=== PATIENT | male | born 1940 | race Caucasian/White ===

== ENCOUNTER 2020-10-08 20:46 | Inpatient (IN) ==
[2020-10-08] MEDS ORDERED: 0.9 % Sodium Chloride 1,000 ML IVC ONE (21:09)
[2020-10-08] MEDS ORDERED: 0.9 % Sodium Chloride 2,000 ML ONE (21:09)
[2020-10-08] MEDS ORDERED: 0.9 % Sodium Chloride 1,000 ML IV ONE (21:11)
[2020-10-08 21:25] LABS: Hematocrit 31.9 % (37.5-50.1); INR 1.2; Mean Corpuscular HGB Conc 31.3 g/dL (31.6-35.5); Mean Corpuscular Volume 95.8 fL (83.0-100.0); Mean Platelet Volume 10.1 fL (9.4-12.4); Nucleated Red Blood Cells 0.6 /100 WBC (0); Platelet Count 273 K/mcL (140-400); Prothrombin Time 13.3 Seconds (9.4-12.1); Red Blood Count 3.33 M/mcL (4.19-5.50); Red Cell Distribution Width 18.6 % (11.5-14.5); White Blood Count 12.8 K/mcL (4.3-11.1)
[2020-10-08 21:46] LABS: Albumin 2.8 g/dL (3.5-5.7); Albumin/Globulin Ratio 0.8 (1.1-2.2); Bilirubin,Total 0.3 mg/dL (0.3-1.0); Calcium 7.9 mg/dL (8.6-10.3); Globulin 3.6 g/dL (2.4-3.5); Total Protein 6.4 g/dL (6.4-8.9); Troponin I 0.05 ng/mL (< 0.04)
[2020-10-08] MEDS ORDERED: MetroNIDAZOLE 500 MG/100 ML 500 MG/100 ML BAG IVPB ONE (21:50)
[2020-10-08] MEDS ORDERED: 0.9 % Sodium Chloride 500 ML IV ONE (21:50)
[2020-10-08] MEDS ORDERED: Cefepime HCl 2,000 MG in Water for inj. (sterile) 20 ML IVP ONE (21:50)
[2020-10-08] MEDS ORDERED: Vancomycin 1,250 MG/262.5 ML IV.SOLN IVPB ONE (22:00)
[2020-10-08] MEDS ORDERED: 0.9 % Sodium Chloride 250 ML ONE (22:03)
[2020-10-08] MEDS ORDERED: *HR* Norepinephrine 4 MG/4 ML VIAL IVC ONE (22:03)
[2020-10-08] MEDS: Norepinephrine 4 MG/254 ML IV.SOLN IVC SCH (22:14)
[2020-10-08 22:21] LABS: Lymphocytes # 1.8 K/mcL (0.6-4.6); Monocytes # 0.4 K/mcL (0.0-1.3); Neutrophils # 9.9 K/mcL (1.6-8.9)
[2020-10-08 22:22] LABS: Anisocytosis 1+ (Not Present); Platelet Estimate Normal (Normal); Reactive Lymphocytes Present (Not Present)
[2020-10-08 23:13] LABS: Bacteria,Urine Few per hpf (None-Few); Bilirubin,Urine Negative (Negative); Blood,Urine Small (Negative); Clarity,Urine Turbid (Clear); Color,Urine Yellow (Yellow); Glucose,Urine (UA) Normal (Normal); Ketones,Urine Negative (Negative); Leukocyte Esterase,Urine Negative (Negative); Nitrite,Urine Negative (Negative); PH,Urine 5.5 pH Units (5.0-8.0); Protein,Urine 200 mg/dL (Neg-Trace); RBC,Urine 0-3 per hpf (0-3); Specific Gravity,Urine 1.028 (1.010-1.025); Urobilinogen,Urine Normal (Normal)
[2020-10-08 23:53] LABS: VBG HCO3 14 mEq/L (21-27); VBG PCO2 35 mmHg (41-51); VBG PO2 48 mmHg (25-50)
[2020-10-09 02:37] LABS: Adenovirus Not Detected (Not Detect); Bordetella Pertussis Not Detected (Not Detect); Chlamydophila pneumoniae Not Detected (Not Detect); Coronavirus 229E Not Detected (Not Detect); Coronavirus HKU1 Not Detected (Not Detect); Coronavirus NL63 Not Detected (Not Detect); Coronavirus OC43 Not Detected (Not Detect); Human Metapneumovirus Not Detected (Not Detect); Human Rhinovirus/Enterovirus Not Detected (Not Detect); Influenza A Subtype 2009 H1 Not Detected (Not Detect); Influenza B Not Detected (Not Detect); Mycoplasma pneumoniae Not Detected (Not Detect); Parainfluenza Virus 1 Not Detected (Not Detect); Parainfluenza Virus 2 Not Detected (Not Detect); Parainfluenza Virus 3 Not Detected (Not Detect); Parainfluenza Virus 4 Not Detected (Not Detect); Respiratory Syncytial Virus Not Detected (Not Detect); SARS-CoV-2 Not Detected (Not Detect)
[2020-10-09 04:13] LABS: VBG Ionized Calcium 0.85 mmol/L (1.15-1.35)
[2020-10-09 04:15] LABS: Hematocrit 29.4 % (37.5-50.1); Mean Corpuscular HGB Conc 30.6 g/dL (31.6-35.5); Mean Corpuscular Hemoglobin 29.5 pg (28.0-33.3); Mean Corpuscular Volume 96.4 fL (83.0-100.0); Mean Platelet Volume 10.5 fL (9.4-12.4); Nucleated Red Blood Cells 0.6 /100 WBC (0); Platelet Count 265 K/mcL (140-400); Red Blood Count 3.05 M/mcL (4.19-5.50); Red Cell Distribution Width 18.8 % (11.5-14.5); White Blood Count 14.1 K/mcL (4.3-11.1)
[2020-10-09 04:32] LABS: Albumin 2.7 g/dL (3.5-5.7); Albumin/Globulin Ratio 0.8 (1.1-2.2); Bilirubin,Total 0.3 mg/dL (0.3-1.0); Calcium 7.3 mg/dL (8.6-10.3); Globulin 3.3 g/dL (2.4-3.5); Magnesium 1.7 mg/dL (1.6-2.6); Phosphorous 4.5 mg/dL (2.7-4.5); Potassium 4.9 mEq/L (3.5-5.1)
[2020-10-09] MEDS ORDERED: Calcium Gluconate 1gm/50mL 1 GM/50 ML BAG IVPB ONE ×3 (04:41→17:31)
[2020-10-09] MEDS ORDERED: Naloxone 0.4 MG/ML INJ IVP PRN (04:53)
[2020-10-09] MEDS: Ipratropium/Albuterol Neb 3 ML IH PRN (05:08)
[2020-10-09 05:20] LABS: Basophils # 0.3 K/mcL (0.0-0.2); Monocytes # 0.3 K/mcL (0.0-1.3); Neutrophils # 11.6 K/mcL (1.6-8.9); Platelet Estimate Normal (Normal)
[2020-10-09] MEDS: Norepinephrine 4 MG/254 ML IV.SOLN IVC SCH ×2 (06:35→21:49)
[2020-10-09] MEDS ORDERED: Vancomycin 1 EACH in 0.9 % Sodium Chloride 250 ML IVPB PRN (07:00)
[2020-10-09] MEDS: MetroNIDAZOLE 500 MG/100 ML 500 MG/100 ML BAG IVPB SCH ×3 (07:59→23:21)
[2020-10-09] MEDS ORDERED: Hydrocortisone Sodium Succ 100 MG/2 ML VIAL IVP SCH (08:00)
[2020-10-09] MEDS: Ringers Solution, Lactated 1,000 ML IVC SCH ×3 (08:55→21:48)
[2020-10-09 09:46] LABS: ABG Base Excess -12 mEq/L (-2 to 3); ABG HCO3 13 mEq/L (21-27); ABG Oxygen Saturation 91 % (95-98); ABG PCO2 24 mmHg (35-45); ABG PH 7.33 pH Units (7.32-7.45); ABG PO2 64 mmHg (85-104); ABG TCO2 14 mEq/L (20-26)
[2020-10-09] MEDS: Sodium Bicarbonate 150 MEQ in D5% in Water 1,000 ML IVC SCH ×2 (09:58→21:49)
[2020-10-09] MEDS: Calcium Gluconate 1gm/50mL 1 GM/50 ML BAG IVPB SCH ×2 (10:08→11:16)
[2020-10-09] MEDS: Hydrocortisone Sodium Succ 100 MG/2 ML VIAL IVP SCH ×3 (13:30→23:21)
[2020-10-09] MEDS: *HR* Heparin 5,000 UNIT/ML VIAL SQ SCH ×2 (13:30→17:34)
[2020-10-09 14:48] LABS: Uric Acid 10.2 mg/dL (2.3-7.6)
[2020-10-09 17:24] LABS: VBG Ionized Calcium 0.94 mmol/L (1.15-1.35)
[2020-10-09] MEDS ORDERED: Magnesium Sulfate 1 GM/102 ML PIGGYBACK IVPB ONE (17:31)
[2020-10-09 17:34] LABS: Sodium, Urine 56.6 mEq/L
[2020-10-09] MEDS ORDERED: Calcium Gluconate 1gm/50mL 1 GM/50 ML BAG IVPB PRN (17:56)
[2020-10-09] MEDS: Pantoprazole 40 MG VIAL IVP SCH (22:50)
[2020-10-10] MEDS: *HR* Heparin 5,000 UNIT/ML VIAL SQ SCH ×2 (03:41→11:22)
[2020-10-10 04:03] LABS: VBG Ionized Calcium 0.98 mmol/L (1.15-1.35)
[2020-10-10 04:17] LABS: Hematocrit 25.9 % (37.5-50.1); Hemoglobin 8.4 g/dL (12.9-16.9); Mean Corpuscular HGB Conc 32.4 g/dL (31.6-35.5); Mean Corpuscular Hemoglobin 29.7 pg (28.0-33.3); Mean Corpuscular Volume 91.5 fL (83.0-100.0); Mean Platelet Volume 10.2 fL (9.4-12.4); Nucleated Red Blood Cells 0.4 /100 WBC (0); Platelet Count 244 K/mcL (140-400); Red Blood Count 2.83 M/mcL (4.19-5.50); Red Cell Distribution Width 18.2 % (11.5-14.5); White Blood Count 12.3 K/mcL (4.3-11.1)
[2020-10-10 04:20] LABS: Magnesium 1.9 mg/dL (1.6-2.6); Phosphorous 4.3 mg/dL (2.7-4.5)
[2020-10-10 04:38] LABS: Monocytes # 0.3 K/mcL (0.0-1.3); Neutrophils # 10.8 K/mcL (1.6-8.9); Platelet Estimate Normal (Normal)
[2020-10-10 04:48] LABS: Albumin 2.4 g/dL (3.5-5.7); Albumin/Globulin Ratio 0.8 (1.1-2.2); Bilirubin,Total 0.3 mg/dL (0.3-1.0); Calcium 7.7 mg/dL (8.6-10.3); Globulin 3.2 g/dL (2.4-3.5); Potassium 4.4 mEq/L (3.5-5.1); Total Protein 5.6 g/dL (6.4-8.9)
[2020-10-10] MEDS ORDERED: *HR* Metoprolol 5 MG/5 ML VIAL IVP ONE ×3 (05:26→12:50)
[2020-10-10] MEDS: Hydrocortisone Sodium Succ 100 MG/2 ML VIAL IVP SCH ×2 (05:40→11:22)
[2020-10-10] MEDS: Calcium Gluconate 1gm/50mL 1 GM/50 ML BAG IVPB SCH ×2 (05:41→06:17)
[2020-10-10] MEDS: Pantoprazole 40 MG VIAL IVP SCH (08:01)
[2020-10-10] MEDS: MetroNIDAZOLE 500 MG/100 ML 500 MG/100 ML BAG IVPB SCH ×3 (08:02→23:04)
[2020-10-10] MEDS: Ringers Solution, Lactated 1,000 ML IVC SCH ×2 (09:26→11:23)
[2020-10-10] MEDS: Ipratropium/Albuterol Neb 3 ML IH PRN (10:23)
[2020-10-10] MEDS ORDERED: Vancomycin 1 EACH in 0.9 % Sodium Chloride 250 ML IVPB PRN (11:35)
[2020-10-10] MEDS ORDERED: Ipratropium/Albuterol Neb 3 ML IH PRN (11:35)
[2020-10-10] MEDS ORDERED: Naloxone 0.4 MG/ML INJ IVP PRN (11:35)
[2020-10-10 11:53] LABS: VBG Ionized Calcium 1.06 mmol/L (1.15-1.35)
[2020-10-11 01:54] LABS: Hematocrit 25.2 % (37.5-50.1); Hemoglobin 8.4 g/dL (12.9-16.9); Mean Corpuscular HGB Conc 33.3 g/dL (31.6-35.5); Mean Corpuscular Hemoglobin 30.4 pg (28.0-33.3); Mean Corpuscular Volume 91.3 fL (83.0-100.0); Mean Platelet Volume 10.2 fL (9.4-12.4); Nucleated Red Blood Cells 0.4 /100 WBC (0); Platelet Count 241 K/mcL (140-400); Red Blood Count 2.76 M/mcL (4.19-5.50); Red Cell Distribution Width 18.2 % (11.5-14.5); White Blood Count 13.9 K/mcL (4.3-11.1)
[2020-10-11 02:08] LABS: Albumin 2.5 g/dL (3.5-5.7); Albumin/Globulin Ratio 0.8 (1.1-2.2); Bilirubin,Total 0.3 mg/dL (0.3-1.0); Calcium 7.9 mg/dL (8.6-10.3); Potassium 4.1 mEq/L (3.5-5.1); Total Protein 5.5 g/dL (6.4-8.9)
[2020-10-11 02:25] LABS: Lymphocytes # 1.4 K/mcL (0.6-4.6); Monocytes # 0.3 K/mcL (0.0-1.3); Neutrophils # 11.4 K/mcL (1.6-8.9)
[2020-10-11] MEDS: MetroNIDAZOLE 500 MG/100 ML 500 MG/100 ML BAG IVPB SCH ×2 (07:59→17:35)
[2020-10-11] MEDS: 0.9 % Sodium Chloride 1,000 ML IVC SCH (11:49)
[2020-10-11] MEDS: Cefepime HCl 1,000 MG in Water for inj. (sterile) 10 ML IVP SCH (11:50)
[2020-10-11] MEDS ORDERED: D5% in Water 1,000 ML IVC PRN (15:14)
[2020-10-11] MEDS ORDERED: Dextrose Gel 15 GM/37.5 ML TUBE PO PRN ×2 (15:14)
[2020-10-11] MEDS ORDERED: *HR* Dextrose 50 % in Water (Vial) 50 ML VIAL IVP PRN (15:14)
[2020-10-11] MEDS: Insulin LISPRO 300 UNITS/3 ML VIAL SUBQ SCH ×2 (17:38→20:46)
[2020-10-12] MEDS: 0.9 % Sodium Chloride 1,000 ML IVC SCH (00:13)
[2020-10-12] MEDS: MetroNIDAZOLE 500 MG/100 ML 500 MG/100 ML BAG IVPB SCH ×4 (00:14→23:32)
[2020-10-12 03:10] LABS: Albumin 2.7 g/dL (3.5-5.7); Albumin/Globulin Ratio 0.8 (1.1-2.2); Bilirubin,Total 0.4 mg/dL (0.3-1.0); Globulin 3.4 g/dL (2.4-3.5); Potassium 3.8 mEq/L (3.5-5.1); Total Protein 6.1 g/dL (6.4-8.9)
[2020-10-12 04:22] LABS: Hematocrit 30.1 % (37.5-50.1); Hemoglobin 9.8 g/dL (12.9-16.9); Mean Corpuscular HGB Conc 32.6 g/dL (31.6-35.5); Mean Corpuscular Hemoglobin 30.1 pg (28.0-33.3); Mean Corpuscular Volume 92.3 fL (83.0-100.0); Nucleated Red Blood Cells 0.4 /100 WBC (0); Platelet Count 249 K/mcL (140-400); Red Blood Count 3.26 M/mcL (4.19-5.50); Red Cell Distribution Width 18.6 % (11.5-14.5); White Blood Count 13.6 K/mcL (4.3-11.1)
[2020-10-12 06:06] LABS: Basophils # 0.3 K/mcL (0.0-0.2); Lymphocytes # 2.5 K/mcL (0.6-4.6); Monocytes # 0.3 K/mcL (0.0-1.3); Neutrophils # 9.5 K/mcL (1.6-8.9); Platelet Estimate Normal (Normal)
[2020-10-12] MEDS: Insulin LISPRO 300 UNITS/3 ML VIAL SUBQ SCH ×4 (08:16→20:21)
[2020-10-12] MEDS: Cefepime HCl 1,000 MG in Water for inj. (sterile) 10 ML IVP SCH (12:05)
[2020-10-12] MEDS ORDERED: Vancomycin 500 MG in 0.9 % Sodium Chloride Mini Bag 100 ML IVPB ONE (14:00)
[2020-10-12] MEDS ORDERED: Ipratropium/Albuterol Neb 3 ML IH SCH (14:30)
[2020-10-12] MEDS: *HR* Heparin 5,000 UNIT/ML VIAL SQ SCH (20:25)
[2020-10-13 03:27] LABS: Hematocrit 29.3 % (37.5-50.1); Mean Corpuscular HGB Conc 30.7 g/dL (31.6-35.5); Mean Corpuscular Hemoglobin 28.8 pg (28.0-33.3); Mean Corpuscular Volume 93.6 fL (83.0-100.0); Mean Platelet Volume 10.4 fL (9.4-12.4); Nucleated Red Blood Cells 0.3 /100 WBC (0); Platelet Count 281 K/mcL (140-400); Red Blood Count 3.13 M/mcL (4.19-5.50); Red Cell Distribution Width 18.8 % (11.5-14.5); White Blood Count 14.7 K/mcL (4.3-11.1)
[2020-10-13 03:48] LABS: Albumin 2.6 g/dL (3.5-5.7); Albumin/Globulin Ratio 0.9 (1.1-2.2); Bilirubin,Total 0.4 mg/dL (0.3-1.0); Calcium 7.8 mg/dL (8.6-10.3); Globulin 2.9 g/dL (2.4-3.5); Potassium 3.2 mEq/L (3.5-5.1); Total Protein 5.5 g/dL (6.4-8.9)
[2020-10-13 04:07] LABS: Lymphocytes # 3.8 K/mcL (0.6-4.6); Monocytes # 0.6 K/mcL (0.0-1.3); Neutrophils # 9.4 K/mcL (1.6-8.9); Platelet Estimate Normal (Normal); Smudge Cells Present (Not Present)
[2020-10-13] MEDS: *HR* Heparin 5,000 UNIT/ML VIAL SQ SCH ×3 (04:49→20:35)
[2020-10-13] MEDS: MetroNIDAZOLE 500 MG/100 ML 500 MG/100 ML BAG IVPB SCH (07:27)
[2020-10-13] MEDS: Insulin LISPRO 300 UNITS/3 ML VIAL SUBQ SCH ×4 (07:38→20:36)
[2020-10-13] MEDS: Cefepime HCl 1,000 MG in Water for inj. (sterile) 10 ML IVP SCH (13:23)
[2020-10-13] MEDS ORDERED: Potassium Chloride Elixir 20 MEQ/15 ML UDC PO ONE (13:57)
[2020-10-13] MEDS: Sennosides/Docusate Sodium TABLET PO SCH (18:32)
[2020-10-13] MEDS: Acetaminophen 325 MG TABLET PO PRN (18:34)
[2020-10-13] MEDS: Magic Mouthwash 10 ML UD Cup PO SCH (20:35)
[2020-10-14 04:56] LABS: Hematocrit 26.8 % (37.5-50.1); Hemoglobin 8.7 g/dL (12.9-16.9); Mean Corpuscular HGB Conc 32.5 g/dL (31.6-35.5); Mean Corpuscular Volume 92.4 fL (83.0-100.0); Mean Platelet Volume 10.1 fL (9.4-12.4); Platelet Count 322 K/mcL (140-400); Red Cell Distribution Width 18.8 % (11.5-14.5); White Blood Count 13.3 K/mcL (4.3-11.1)
[2020-10-14 05:16] LABS: Calcium 7.7 mg/dL (8.6-10.3); Potassium 2.9 mEq/L (3.5-5.1)
[2020-10-14] MEDS: *HR* Heparin 5,000 UNIT/ML VIAL SQ SCH ×3 (05:40→21:28)
[2020-10-14] MEDS: Insulin LISPRO 300 UNITS/3 ML VIAL SUBQ SCH ×4 (07:21→21:28)
[2020-10-14] MEDS: Potassium Chloride Elixir 20 MEQ/15 ML UDC PO SCH ×2 (07:37→10:49)
[2020-10-14] MEDS: Sennosides/Docusate Sodium TABLET PO SCH (07:37)
[2020-10-14] MEDS: Magic Mouthwash 10 ML UD Cup PO SCH ×3 (07:37→17:54)
[2020-10-14] MEDS: Acetaminophen 325 MG TABLET PO PRN (10:49)
[2020-10-14] MEDS ORDERED: Potassium Citrate 10 MEQ TABLET.ER PO SCH (11:00)
[2020-10-14] MEDS ORDERED: levoFLOXacin 750 MG TABLET PO ONE (13:00)
[2020-10-14] MEDS ORDERED: 0.9 % Sodium Chloride 250 ML IVC ONE (13:24)
[2020-10-14] MEDS ORDERED: 0.9 % Sodium Chloride 500 ML IVC ONE (14:34)
[2020-10-14] MEDS ORDERED: 0.9 % Sodium Chloride 500 ML ONE (14:35)
[2020-10-14] MEDS ORDERED: Perflutren Lipid Microsphere 1.3 ML in 0.9 % Sodium Chloride 8.7 ML IVP PRN (14:51)
[2020-10-14] MEDS ORDERED: Piperacillin/Tazobactam 3.375 GM in 0.9 % Sodium Chloride Mini Bag 100 ML IVPB SCH (16:00)
[2020-10-14] MEDS: Piperacillin/Tazobactam 3.375 GM in 0.9 % Sodium Chloride Mini Bag 100 ML IVPB SCH (16:04)
[2020-10-15] MEDS: Piperacillin/Tazobactam 3.375 GM in 0.9 % Sodium Chloride Mini Bag 100 ML IVPB SCH ×4 (00:23→23:35)
[2020-10-15 05:15] LABS: VBG Ionized Calcium 0.98 mmol/L (1.15-1.35)
[2020-10-15 05:16] LABS: Hematocrit 27.2 % (37.5-50.1); Hemoglobin 8.7 g/dL (12.9-16.9); Mean Corpuscular Hemoglobin 30.5 pg (28.0-33.3); Mean Corpuscular Volume 95.4 fL (83.0-100.0); Mean Platelet Volume 9.6 fL (9.4-12.4); Platelet Count 365 K/mcL (140-400); Red Blood Count 2.85 M/mcL (4.19-5.50); Red Cell Distribution Width 19.6 % (11.5-14.5); White Blood Count 12.8 K/mcL (4.3-11.1)
[2020-10-15 05:33] LABS: Calcium 7.5 mg/dL (8.6-10.3); Potassium 3.3 mEq/L (3.5-5.1)
[2020-10-15 05:35] LABS: Albumin 2.5 g/dL (3.5-5.7); Albumin/Globulin Ratio 0.8 (1.1-2.2); Bilirubin,Total 0.4 mg/dL (0.3-1.0); Calcium 7.5 mg/dL (8.6-10.3); Magnesium 1.3 mg/dL (1.6-2.6); Phosphorous 2.5 mg/dL (2.7-4.5); Potassium 3.2 mEq/L (3.5-5.1); Total Protein 5.5 g/dL (6.4-8.9)
[2020-10-15 05:52] LABS: Anisocytosis 1+ (Not Present); Lymphocytes # 0.8 K/mcL (0.6-4.6); Monocytes # 1.5 K/mcL (0.0-1.3); Platelet Estimate Normal (Normal); Toxic Granulation Present (Not Present)
[2020-10-15] MEDS: *HR* Heparin 5,000 UNIT/ML VIAL SQ SCH ×3 (06:27→21:14)
[2020-10-15] MEDS: Magic Mouthwash 10 ML UD Cup PO SCH ×4 (07:14→16:34)
[2020-10-15] MEDS: Sennosides/Docusate Sodium TABLET PO SCH (07:14)
[2020-10-15] MEDS: Insulin LISPRO 300 UNITS/3 ML VIAL SUBQ SCH ×4 (07:31→19:57)
[2020-10-15] MEDS ORDERED: *HR* Metoprolol 5 MG/5 ML VIAL IVP ONE ×2 (08:09→08:10)
[2020-10-15] MEDS ORDERED: *HR* Metoprolol 5 MG/5 ML VIAL IVP PRN ×2 (08:09→16:11)
[2020-10-15] MEDS ORDERED: Perflutren Lipid Microsphere 1.3 ML in 0.9 % Sodium Chloride 8.7 ML IVP PRN ×2 (09:22→09:49)
[2020-10-15] MEDS ORDERED: Potassium Chloride Elixir 20 MEQ/15 ML UDC PO ONE (09:48)
[2020-10-15] MEDS ORDERED: Sodium Bicarbonate 150 MEQ in D5% in Water 1,000 ML IVC SCH ×2 (15:00→16:11)
[2020-10-15] MEDS ORDERED: Naloxone 0.4 MG/ML INJ IVP PRN (16:11)
[2020-10-15] MEDS ORDERED: *HR* Dextrose 50 % in Water (Vial) 50 ML VIAL IVP PRN (16:11)
[2020-10-15] MEDS ORDERED: Dextrose Gel 15 GM/37.5 ML TUBE PO PRN ×2 (16:11)
[2020-10-15] MEDS ORDERED: Ipratropium/Albuterol Neb 3 ML IH PRN (16:11)
[2020-10-15 20:24] LABS: VBG Ionized Calcium 1.03 mmol/L (1.15-1.35)
[2020-10-15 20:37] LABS: Calcium 7.4 mg/dL (8.6-10.3); Potassium 3.4 mEq/L (3.5-5.1)
[2020-10-16 04:09] LABS: Hematocrit 25.9 % (37.5-50.1); Hemoglobin 8.4 g/dL (12.9-16.9); Mean Corpuscular HGB Conc 32.4 g/dL (31.6-35.5); Mean Corpuscular Hemoglobin 29.9 pg (28.0-33.3); Mean Corpuscular Volume 92.2 fL (83.0-100.0); Mean Platelet Volume 9.2 fL (9.4-12.4); Platelet Count 411 K/mcL (140-400); Red Blood Count 2.81 M/mcL (4.19-5.50); Red Cell Distribution Width 19.3 % (11.5-14.5); White Blood Count 11.5 K/mcL (4.3-11.1)
[2020-10-16 04:14] LABS: VBG Ionized Calcium 0.97 mmol/L (1.15-1.35)
[2020-10-16 04:25] LABS: Albumin 2.4 g/dL (3.5-5.7); Albumin/Globulin Ratio 0.8 (1.1-2.2); Bilirubin,Total 0.4 mg/dL (0.3-1.0); Calcium 7.1 mg/dL (8.6-10.3); Magnesium 1.7 mg/dL (1.6-2.6); Phosphorous 1.9 mg/dL (2.7-4.5); Total Protein 5.4 g/dL (6.4-8.9)
[2020-10-16 04:36] LABS: Lymphocytes # 2.1 K/mcL (0.6-4.6); Neutrophils # 8.3 K/mcL (1.6-8.9)
[2020-10-16 04:37] LABS: Anisocytosis 1+ (Not Present); Platelet Estimate Normal (Normal); Reactive Lymphocytes Present (Not Present); Toxic Granulation Present (Not Present)
[2020-10-16] MEDS: *HR* Heparin 5,000 UNIT/ML VIAL SQ SCH (05:21)
[2020-10-16] MEDS: Calcium Gluconate 1gm/50mL 1 GM/50 ML BAG IVPB PRN (06:14)
[2020-10-16] MEDS: Magic Mouthwash 10 ML UD Cup PO SCH ×3 (07:37→15:37)
[2020-10-16] MEDS: Piperacillin/Tazobactam 3.375 GM in 0.9 % Sodium Chloride Mini Bag 100 ML IVPB SCH ×2 (07:38→19:49)
[2020-10-16] MEDS: Insulin LISPRO 300 UNITS/3 ML VIAL SUBQ SCH ×5 (07:39→22:02)
[2020-10-16] MEDS: Sennosides/Docusate Sodium TABLET PO SCH (07:40)
[2020-10-16] MEDS ORDERED: Potassium Chloride Elixir 20 MEQ/15 ML UDC PO ONE (07:48)
[2020-10-16 08:16] LABS: Basophils % 0.5 %; Eosinophils # 0.1 K/mcL (0.0-0.6); Eosinophils % 0.7 %; Hematocrit 27.4 % (37.5-50.1); Hemoglobin 8.3 g/dL (12.9-16.9); Immature Granulocytes % 0.3 % (0-4); Lymphocytes # 0.4 K/mcL (0.6-4.6); Lymphocytes % 4.6 %; Mean Corpuscular HGB Conc 30.3 g/dL (31.6-35.5); Mean Corpuscular Hemoglobin 28.1 pg (28.0-33.3); Mean Corpuscular Volume 92.9 fL (83.0-100.0); Mean Platelet Volume 10.4 fL (9.4-12.4); Monocytes % 11.4 %; Neutrophils # 7.1 K/mcL (1.6-8.9); Platelet Count 146 K/mcL (140-400); Red Blood Count 2.95 M/mcL (4.19-5.50); Red Cell Distribution Width 16.5 % (11.5-14.5); Segmented Neutrophils % 82.5 %; White Blood Count 8.6 K/mcL (4.3-11.1)
[2020-10-16] MEDS ORDERED: Amiodarone Premix 360 MG/200 ML BAG IVC ONE (08:17)
[2020-10-16] MEDS ORDERED: Amiodarone Premix 150 MG/100 ML BAG IVPB ONE (08:17)
[2020-10-16] MEDS ORDERED: *HR* Heparin 5,000 UNIT/ML VIAL IVP PRN ×2 (08:18)
[2020-10-16] MEDS ORDERED: *HR* Heparin 5,000 UNIT/ML VIAL IVP ONE (08:18)
[2020-10-16 08:46] LABS: Platelet Estimate Normal (Normal)
[2020-10-16 09:05] LABS: Calcium 8.7 mg/dL (8.6-10.3)
[2020-10-16 09:11] LABS: Hematocrit 27.8 % (37.5-50.1); Hemoglobin 8.8 g/dL (12.9-16.9); Mean Corpuscular HGB Conc 31.7 g/dL (31.6-35.5); Mean Corpuscular Hemoglobin 29.4 pg (28.0-33.3); Mean Platelet Volume 9.6 fL (9.4-12.4); Platelet Count 465 K/mcL (140-400); Red Blood Count 2.99 M/mcL (4.19-5.50); Red Cell Distribution Width 19.8 % (11.5-14.5); White Blood Count 12.9 K/mcL (4.3-11.1)
[2020-10-16 09:14] LABS: Heparin anti-factor XA UFH 0.08 IU/mL (0.30-0.70)
[2020-10-16 09:15] LABS: INR 1.3
[2020-10-16] MEDS: Heparin 25,000UNIT/250ML 1/2NS 25,000 UNIT/250 ML IV.SOLN IVC SCH (09:17)
[2020-10-16] MEDS: *HR* Digoxin 0.25 MG TABLET PO SCH ×3 (11:03→23:06)
[2020-10-16] MEDS ORDERED: levoFLOXacin 500 MG TABLET PO SCH (13:00)
[2020-10-16] MEDS ORDERED: Amiodarone Premix 360 MG/200 ML BAG IVC SCH (14:18)
[2020-10-16] MEDS: Acetaminophen 325 MG TABLET PO PRN (23:10)
[2020-10-17] MEDS: *HR* Digoxin 0.25 MG TABLET PO SCH ×2 (05:10→11:18)
[2020-10-17] MEDS: Acetaminophen 325 MG TABLET PO PRN ×3 (05:13→20:08)
[2020-10-17 05:29] LABS: Hematocrit 27.7 % (37.5-50.1); Hemoglobin 8.8 g/dL (12.9-16.9); Mean Corpuscular HGB Conc 31.8 g/dL (31.6-35.5); Mean Corpuscular Hemoglobin 30.6 pg (28.0-33.3); Mean Corpuscular Volume 96.2 fL (83.0-100.0); Mean Platelet Volume 9.4 fL (9.4-12.4); Platelet Count 442 K/mcL (140-400); Red Blood Count 2.88 M/mcL (4.19-5.50); Red Cell Distribution Width 20.1 % (11.5-14.5); White Blood Count 11.6 K/mcL (4.3-11.1)
[2020-10-17 05:53] LABS: Calcium 7.3 mg/dL (8.6-10.3); Potassium 3.3 mEq/L (3.5-5.1)
[2020-10-17] MEDS: Heparin 25,000UNIT/250ML 1/2NS 25,000 UNIT/250 ML IV.SOLN IVC SCH ×2 (07:58→23:21)
[2020-10-17] MEDS: Sennosides/Docusate Sodium TABLET PO SCH (08:03)
[2020-10-17] MEDS: Magic Mouthwash 10 ML UD Cup PO SCH ×3 (08:03→16:26)
[2020-10-17] MEDS: Piperacillin/Tazobactam 3.375 GM in 0.9 % Sodium Chloride Mini Bag 100 ML IVPB SCH ×2 (08:03→20:08)
[2020-10-17] MEDS: Potassium Chloride Elixir 20 MEQ/15 ML UDC PO SCH ×2 (08:38→11:18)
[2020-10-17] MEDS: Insulin LISPRO 300 UNITS/3 ML VIAL SUBQ SCH ×3 (12:10→19:57)
[2020-10-18] MEDS: Acetaminophen 325 MG TABLET PO PRN ×3 (05:30→20:32)
[2020-10-18 05:53] LABS: Hematocrit 26.6 % (37.5-50.1); Hemoglobin 8.3 g/dL (12.9-16.9); Mean Corpuscular HGB Conc 31.2 g/dL (31.6-35.5); Mean Corpuscular Hemoglobin 30.2 pg (28.0-33.3); Mean Corpuscular Volume 96.7 fL (83.0-100.0); Mean Platelet Volume 9.3 fL (9.4-12.4); Platelet Count 417 K/mcL (140-400); Red Blood Count 2.75 M/mcL (4.19-5.50); Red Cell Distribution Width 20.1 % (11.5-14.5); White Blood Count 11.8 K/mcL (4.3-11.1)
[2020-10-18 06:12] LABS: Potassium 3.6 mEq/L (3.5-5.1)
[2020-10-18] MEDS: Insulin LISPRO 300 UNITS/3 ML VIAL SUBQ SCH ×4 (07:38→20:23)
[2020-10-18] MEDS: Piperacillin/Tazobactam 3.375 GM in 0.9 % Sodium Chloride Mini Bag 100 ML IVPB SCH ×2 (07:53→16:45)
[2020-10-18] MEDS: Magic Mouthwash 10 ML UD Cup PO SCH ×3 (07:54→16:44)
[2020-10-18] MEDS: Sennosides/Docusate Sodium TABLET PO SCH (07:54)
[2020-10-18] MEDS ORDERED: *HR* Digoxin 0.25 MG TABLET PO SCH (09:00)
[2020-10-18] MEDS: Heparin 25,000UNIT/250ML 1/2NS 25,000 UNIT/250 ML IV.SOLN IVC SCH (10:00)
[2020-10-18] MEDS ORDERED: 0.9 % Sodium Chloride 1,000 ML IVC ONE (14:10)
[2020-10-18] MEDS: *HR* Amiodarone 200 MG TABLET PO SCH (20:29)
[2020-10-19] MEDS: Piperacillin/Tazobactam 3.375 GM in 0.9 % Sodium Chloride Mini Bag 100 ML IVPB SCH ×2 (00:15→07:57)
[2020-10-19 01:53] LABS: Basophils % 0.3 %; Eosinophils % 0.1 %; Hematocrit 25.4 % (37.5-50.1); Hemoglobin 7.8 g/dL (12.9-16.9); Immature Granulocytes % 4.8 % (0-4); Lymphocytes # 1.7 K/mcL (0.6-4.6); Lymphocytes % 13.9 %; Mean Corpuscular HGB Conc 30.7 g/dL (31.6-35.5); Mean Corpuscular Hemoglobin 29.8 pg (28.0-33.3); Mean Corpuscular Volume 96.9 fL (83.0-100.0); Mean Platelet Volume 9.5 fL (9.4-12.4); Monocytes # 1.2 K/mcL (0.0-1.3); Neutrophils # 8.5 K/mcL (1.6-8.9); Platelet Count 394 K/mcL (140-400); Red Blood Count 2.62 M/mcL (4.19-5.50); Segmented Neutrophils % 70.9 %
[2020-10-19 02:11] LABS: Calcium 6.6 mg/dL (8.6-10.3); Potassium 3.2 mEq/L (3.5-5.1)
[2020-10-19] MEDS: *HR* Amiodarone 200 MG TABLET PO SCH ×2 (07:46→19:48)
[2020-10-19] MEDS: Sennosides/Docusate Sodium TABLET PO SCH (07:47)
[2020-10-19] MEDS: Magic Mouthwash 10 ML UD Cup PO SCH ×3 (07:48→16:22)
[2020-10-19] MEDS: Acetaminophen 325 MG TABLET PO PRN ×2 (07:50→14:46)
[2020-10-19] MEDS: Insulin LISPRO 300 UNITS/3 ML VIAL SUBQ SCH ×4 (07:53→23:41)
[2020-10-19] MEDS: Heparin 25,000UNIT/250ML 1/2NS 25,000 UNIT/250 ML IV.SOLN IVC SCH (08:29)
[2020-10-19] MEDS: Potassium Chloride Elixir 20 MEQ/15 ML UDC PO SCH ×2 (10:10→14:47)
[2020-10-19] MEDS: Apixaban 5 MG TABLET PO SCH ×2 (16:22→19:49)
[2020-10-19] MEDS ORDERED: Potassium Chloride Elixir 20 MEQ/15 ML UDC PO SCH (16:30)
[2020-10-19] MEDS ORDERED: 0.9 % Sodium Chloride 500 ML IVC ONE (20:17)
[2020-10-20 00:43] LABS: Hematocrit 29.6 % (37.5-50.1); Hemoglobin 9.3 g/dL (12.9-16.9); Mean Corpuscular HGB Conc 31.4 g/dL (31.6-35.5); Mean Corpuscular Hemoglobin 29.3 pg (28.0-33.3); Mean Corpuscular Volume 93.4 fL (83.0-100.0); Mean Platelet Volume 9.5 fL (9.4-12.4); Platelet Count 381 K/mcL (140-400); Red Blood Count 3.17 M/mcL (4.19-5.50); Red Cell Distribution Width 21.4 % (11.5-14.5); White Blood Count 10.4 K/mcL (4.3-11.1)
[2020-10-20 00:48] LABS: VBG Ionized Calcium 0.98 mmol/L (1.15-1.35)
[2020-10-20 01:11] LABS: Lymphocytes # 1.7 K/mcL (0.6-4.6); Monocytes # 0.6 K/mcL (0.0-1.3); Neutrophils # 8.1 K/mcL (1.6-8.9)
[2020-10-20 01:12] LABS: Anisocytosis 1+ (Not Present); Microcytosis Present (Not Present); Reactive Lymphocytes Present (Not Present)
[2020-10-20] MEDS: Calcium Gluconate 1gm/50mL 1 GM/50 ML BAG IVPB PRN (01:22)
[2020-10-20] MEDS: Magic Mouthwash 10 ML UD Cup PO SCH ×2 (05:42→11:36)
[2020-10-20] MEDS: Acetaminophen 325 MG TABLET PO PRN ×2 (05:42→11:35)
[2020-10-20 07:15] LABS: VBG Ionized Calcium 0.94 mmol/L (1.15-1.35)
[2020-10-20] MEDS: Sennosides/Docusate Sodium TABLET PO SCH (08:31)
[2020-10-20] MEDS: Apixaban 5 MG TABLET PO SCH (08:31)
[2020-10-20] MEDS: *HR* Amiodarone 200 MG TABLET PO SCH (08:31)
[2020-10-20] MEDS: Insulin LISPRO 300 UNITS/3 ML VIAL SUBQ SCH ×2 (08:35→11:35)
[2020-10-20 11:17] VITALS: BP 134/62
== END 2020-10-20 15:27 | DRG 871 ==
LOC: EMEROOARM 20:46 → ICNU 10-09 03:09 → SUATTDRO 10-09 03:09 → ICNU 10-09 03:32 → 2ANU 10-10 15:17 → ICNU 10-14 18:43 → 2NNU 10-18 18:12
PROVIDERS: ADMIT Student in an Organized Health Care Education/Training Program; ATTEND Internal Medicine

== ENCOUNTER 2020-11-16 12:12 | Inpatient (IN) ==
[2020-11-16] MEDS ORDERED: Stomatitis Mixture 5 ML UDC PO PRN (15:43)
[2020-11-16] MEDS ORDERED: polyethylene glycoL 3350 17 GM POWD.PACK PO PRN (15:43)
[2020-11-16] MEDS ORDERED: dexAMETHasone 4 MG TABLET PO SCH (15:45)
[2020-11-16] MEDS ORDERED: Piperacillin/Tazobactam 3.375 GM VIAL IVPB SCH (16:00)
[2020-11-16] MEDS ORDERED: Vancomycin 1,250 MG/262.5 ML IV.SOLN IVPB SCH (17:00)
[2020-11-16 17:31] LABS: Bilirubin,Urine Negative (Negative); Blood,Urine Negative (Negative); Clarity,Urine Clear (Clear); Color,Urine Light-Yellow (Yellow); Glucose,Urine (UA) Normal (Normal); Ketones,Urine Negative (Negative); Leukocyte Esterase,Urine Negative (Negative); Mucus,Urine Few per lpf (None-Few); Nitrite,Urine Negative (Negative); Protein,Urine 30 mg/dL (Neg-Trace); RBC,Urine 0-3 per hpf (0-3); Specific Gravity,Urine 1.018 (1.010-1.025); Urobilinogen,Urine Normal (Normal); WBC,Urine 0-3 per hpf (0-3)
[2020-11-16] MEDS: Sennosides/Docusate Sodium TABLET PO SCH (20:21)
[2020-11-16] MEDS: Apixaban 5 MG TABLET PO SCH (20:22)
[2020-11-16] MEDS: *HR* Amiodarone 200 MG TABLET PO SCH (20:22)
[2020-11-16] MEDS ORDERED: Piperacillin/Tazobactam 3.375 GM in 0.9 % Sodium Chloride Mini Bag 100 ML IVPB SCH (22:00)
[2020-11-16] MEDS: Piperacillin/Tazobactam 3.375 GM in 0.9 % Sodium Chloride Mini Bag 100 ML IVPB SCH (22:11)
[2020-11-16] MEDS: Piperacillin/Tazobactam 3.375 GM VIAL IVPB SCH (22:13)
[2020-11-17] MEDS: Vancomycin 1,250 MG/262.5 ML IV.SOLN IVPB SCH ×2 (01:08→12:30)
[2020-11-17 01:47] LABS: Basophils % 0.1 %; Eosinophils % 0.1 %; Hematocrit 27.4 % (37.5-50.1); Hemoglobin 8.5 g/dL (12.9-16.9); Immature Granulocytes % 1.8 % (0-4); Lymphocytes # 1.1 K/mcL (0.6-4.6); Lymphocytes % 10.3 %; Mean Corpuscular Hemoglobin 29.5 pg (28.0-33.3); Mean Corpuscular Volume 95.1 fL (83.0-100.0); Mean Platelet Volume 9.2 fL (9.4-12.4); Monocytes # 0.8 K/mcL (0.0-1.3); Monocytes % 7.5 %; Neutrophils # 8.2 K/mcL (1.6-8.9); Platelet Count 184 K/mcL (140-400); Red Blood Count 2.88 M/mcL (4.19-5.50); Red Cell Distribution Width 20.7 % (11.5-14.5); Segmented Neutrophils % 80.2 %; White Blood Count 10.2 K/mcL (4.3-11.1)
[2020-11-17 02:00] LABS: BUN/Creatinine Ratio 16 (6-26); Blood Urea Nitrogen 18 mg/dL (8-23); Calcium 8.1 mg/dL (8.6-10.3); Carbon Dioxide 22 mEq/L (23-29); Chloride 100 mEq/L (98-107); Glucose 133 mg/dL (70-105); Osmolality,Calculated 276 (280-300); Potassium 3.9 mEq/L (3.5-5.1); Sodium 131 mEq/L (136-145); eGFR For African Americans > 60 (> 60); eGFR For Non-African Americans > 60 (> 60)
[2020-11-17] MEDS ORDERED: Piperacillin/Tazobactam 3.375 GM VIAL ONE (05:42)
[2020-11-17] MEDS: Piperacillin/Tazobactam 3.375 GM in 0.9 % Sodium Chloride Mini Bag 100 ML IVPB SCH ×3 (05:56→22:52)
[2020-11-17] MEDS: Tiotropium 10 INH DOSE IH SCH (07:46)
[2020-11-17] MEDS: Piperacillin/Tazobactam 3.375 GM VIAL IVPB SCH (07:52)
[2020-11-17] MEDS: Apixaban 5 MG TABLET PO SCH ×2 (07:58→20:21)
[2020-11-17] MEDS: Finasteride 5 MG TABLET PO SCH (07:58)
[2020-11-17] MEDS: Megestrol Acetate 400 MG/10 ML UDC PO SCH (07:59)
[2020-11-17] MEDS: *HR* Amiodarone 200 MG TABLET PO SCH ×2 (07:59→20:22)
[2020-11-17] MEDS: *HR* Pioglitazone 15 MG TABLET PO SCH (07:59)
[2020-11-17] MEDS: Folic Acid 1 MG TABLET PO SCH (07:59)
[2020-11-17] MEDS: Sennosides/Docusate Sodium TABLET PO SCH ×2 (07:59→20:22)
[2020-11-17] MEDS ORDERED: NON-FORMULARY MEDICATION 1 EACH EACH (Umeclidinium Brm/Vilanterol Tr [Anoro Ellipta 62.5-2 IH SCH (09:00)
[2020-11-17] MEDS ORDERED: Ipratropium/Albuterol Neb 3 ML IH PRN (10:00)
[2020-11-17] MEDS: *HR* OxyCODONE/APAP 7.5/325 TABLET PO PRN (19:30)
[2020-11-18] MEDS: Piperacillin/Tazobactam 3.375 GM in 0.9 % Sodium Chloride Mini Bag 100 ML IVPB SCH ×3 (05:07→21:20)
[2020-11-18 05:12] LABS: Hematocrit 27.9 % (37.5-50.1); Hemoglobin 8.6 g/dL (12.9-16.9); Mean Corpuscular HGB Conc 30.8 g/dL (31.6-35.5); Mean Corpuscular Hemoglobin 29.6 pg (28.0-33.3); Mean Corpuscular Volume 95.9 fL (83.0-100.0); Mean Platelet Volume 9.5 fL (9.4-12.4); Platelet Count 181 K/mcL (140-400); Red Blood Count 2.91 M/mcL (4.19-5.50); Red Cell Distribution Width 21.1 % (11.5-14.5); White Blood Count 10.2 K/mcL (4.3-11.1)
[2020-11-18 05:24] LABS: BUN/Creatinine Ratio 15 (6-26); Blood Urea Nitrogen 17 mg/dL (8-23); Calcium 8.1 mg/dL (8.6-10.3); Carbon Dioxide 25 mEq/L (23-29); Chloride 104 mEq/L (98-107); Glucose 91 mg/dL (70-105); Osmolality,Calculated 281 (280-300); Potassium 3.8 mEq/L (3.5-5.1); Sodium 135 mEq/L (136-145); eGFR For African Americans > 60 (> 60); eGFR For Non-African Americans > 60 (> 60)
[2020-11-18] MEDS: *HR* OxyCODONE/APAP 7.5/325 TABLET PO PRN (06:15)
[2020-11-18] MEDS: Tiotropium 10 INH DOSE IH SCH (07:53)
[2020-11-18] MEDS: Apixaban 5 MG TABLET PO SCH ×2 (09:00→21:18)
[2020-11-18] MEDS: Finasteride 5 MG TABLET PO SCH (09:00)
[2020-11-18] MEDS: Sennosides/Docusate Sodium TABLET PO SCH ×2 (09:00→21:18)
[2020-11-18] MEDS: *HR* Amiodarone 200 MG TABLET PO SCH (09:00)
[2020-11-18] MEDS: Megestrol Acetate 400 MG/10 ML UDC PO SCH (09:00)
[2020-11-18] MEDS: *HR* Pioglitazone 15 MG TABLET PO SCH (09:01)
[2020-11-18] MEDS: Folic Acid 1 MG TABLET PO SCH (09:01)
[2020-11-18] MEDS: Metoprolol XL (24 HR) Succ 50 MG TAB.ER.24H PO SCH (14:47)
[2020-11-19] MEDS: Piperacillin/Tazobactam 3.375 GM in 0.9 % Sodium Chloride Mini Bag 100 ML IVPB SCH (05:21)
[2020-11-19] MEDS: Tiotropium 10 INH DOSE IH SCH (07:34)
[2020-11-19] MEDS ORDERED: *HR* Amiodarone 200 MG TABLET PO SCH (09:00)
[2020-11-19] MEDS: Sennosides/Docusate Sodium TABLET PO SCH (09:43)
[2020-11-19] MEDS: Apixaban 5 MG TABLET PO SCH (09:44)
[2020-11-19] MEDS: Megestrol Acetate 400 MG/10 ML UDC PO SCH (09:45)
[2020-11-19] MEDS: Finasteride 5 MG TABLET PO SCH (09:45)
[2020-11-19] MEDS: Folic Acid 1 MG TABLET PO SCH (09:45)
[2020-11-19] MEDS: Metoprolol XL (24 HR) Succ 50 MG TAB.ER.24H PO SCH (09:45)
[2020-11-19 11:23] VITALS: BP 97/57
[2020-11-19 18:31] LABS: Adenovirus Not Detected (Not Detect); Coronavirus 229E Not Detected (Not Detect); Coronavirus HKU1 Not Detected (Not Detect); Coronavirus NL63 Not Detected (Not Detect); Coronavirus OC43 Not Detected (Not Detect); Human Metapneumovirus Not Detected (Not Detect); Human Rhinovirus/Enterovirus Not Detected (Not Detect); Influenza A Subtype 2009 H1 Not Detected (Not Detect); Influenza B Not Detected (Not Detect); Parainfluenza Virus 1 Not Detected (Not Detect); Parainfluenza Virus 2 Not Detected (Not Detect); Parainfluenza Virus 3 Not Detected (Not Detect); Parainfluenza Virus 4 Not Detected (Not Detect); SARS-CoV-2 Not Detected (Not Detect)
[2020-11-19 18:32] LABS: Bordetella Pertussis Not Detected (Not Detect); Chlamydophila pneumoniae Not Detected (Not Detect); Mycoplasma pneumoniae Not Detected (Not Detect); Respiratory Syncytial Virus Not Detected (Not Detect)
== END 2020-11-19 19:21 | DRG 871 ==
LOC: 2NNU → SUATTDRO 15:41 → 3ANU 11-17 10:55
PROVIDERS: ADMIT Family Medicine; ATTEND Internal Medicine